=== PATIENT | female | born 1975 | race Two or more races ===

== ENCOUNTER 2022-11-12 15:48 | Emergency (ER) | payer SELFPAY ==
[~2022-11-12] VITALS: Ht 162.6 cm; Wt 77.2 kg
[2022-11-12 16:02] VITALS: BP 125/84
[2022-11-12] MEDS ORDERED: HYDROcodone-ACET 5/325MG TAB PO ONE (18:15)
[2022-11-12] MEDS ORDERED: KETOROLAC TROMETH 60MG/2ML VIAL IM ONE (18:15)
== END 2022-11-12 19:50 | disposition left against medical advice (07) ==
LOC: ER 15:48
DX: R51.9 Headache, unspecified (principal); M54.2 Cervicalgia; M54.59 Other low back pain; Z53.29 Procedure and treatment not carried out because of patient's decision for other reasons; V89.2XXA Person injured in unspecified motor-vehicle accident, traffic, initial encounter; Y93.89 Activity, other specified; Y92.89 Other specified places as the place of occurrence of the external cause; Y99.8 Other external cause status
CPT/HCPCS: 70450; 72125; J1885